=== PATIENT | male | born 1970 | race Caucasian/White ===

== ENCOUNTER 2024-02-16 16:22 | Outpatient (CLI) | payer BC | END 2024-02-16 23:59 | disposition critical access hospital (66) | LOC: EMS 16:22 | DX: M25.552 Pain in left hip (principal); R10.31 Right lower quadrant pain; S81.001A Unspecified open wound, right knee, initial encounter; S41.101A Unspecified open wound of right upper arm, initial encounter; V18.4XXA Pedal cycle driver injured in noncollision transport accident in traffic accident, initial encounter; Y93.55 Activity, bike riding; Y92.410 Unspecified street and highway as the place of occurrence of the external cause | CPT/HCPCS: A0425; A0427 ==

== ENCOUNTER 2024-02-16 16:57 | Emergency (ER) | payer BC ==
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
[2024-02-16] MEDS: ACETAMINOPHEN 500 MG TABLET PO STA (17:26)
[2024-02-16] MEDS: KETOROLAC 30 MG/ML VIAL IVP STA (17:27)
[2024-02-16] MEDS: HYDROmorphone 0.5 MG/0.5 ML SYRINGE IVP STA ×3 (17:29→22:11)
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
[2024-02-16] MEDS ORDERED: iohexoL-300 100 ML VIAL ONE (19:45)
[2024-02-16 19:55] LABS: BASOPHILS % (AUTO) 0.3 %; EOSINOPHILS % (AUTO) 0.1 %; HCT - HEMATOCRIT 43.2 % (42.0-52.0); HGB - HEMOGLOBIN 14.1 g/dL (14.0-18.0); LYMPHOCYTES # (AUTO) 0.8 10^3/uL (1.5-3.5); LYMPHOCYTES % (AUTO) 6.8 %; MEAN CORPUSCULAR HEMOGLOBIN 29.7 pg (27.0-31.0); MEAN CORPUSCULAR HGB CONC 32.6 g/dL (32.0-36.0); MEAN CORPUSCULAR VOLUME 91.1 fL (80.0-94.0); MONOCYTES # (AUTO) 0.6 10^3/uL (0.0-1.0); NEUTROPHILS # (AUTO) 9.8 10^3/uL (1.5-6.6); NEUTROPHILS % (AUTO) 87.4 %; PLT - PLATELET COUNT 228 10^3/uL (130-450); RED BLOOD COUNT 4.74 10^6/uL (4.70-6.10); RED CELL DISTRIBUTION WIDTH 12.5 % (12.0-15.0); WHITE BLOOD COUNT 11.2 x10^3/uL (4.8-10.8)
[2024-02-16 20:09] LABS: ALBUMIN 3.9 g/dL (3.2-5.5); ALBUMIN/GLOBULIN RATIO 1.6 (1.0-2.2); BILIRUBIN,TOTAL 0.4 mg/dL (0.2-1.0); CALCIUM 8.7 mg/dL (8.5-10.3); CREATININE 0.7 mg/dL (0.6-1.3); MAGNESIUM 1.7 mg/dL (1.7-2.3); POTASSIUM 3.6 mmol/L (3.5-4.5); TOTAL PROTEIN 6.4 g/dL (6.4-8.9)
[2024-02-16 20:49] LABS: BILIRUBIN,URINE NEGATIVE (NEGATIVE); GLUCOSE, URINE (UA) NEGATIVE (NEGATIVE); KETONES,URINE (UA) 15 mg/dL (NEGATIVE); LEUKOCYTE ESTERASE, URINE NEGATIVE (NEGATIVE); NITRITE,URINE NEGATIVE (NEGATIVE); OCCULT BLOOD,URINE NEGATIVE (NEGATIVE); PH,URINE 6.5 PH (5.0-7.5); PROTEIN,URINE TRACE mg/dL (NEGATIVE); UROBILINOGEN,URINE 1 (NORMAL) E.U./dL (NORMAL)
[2024-02-16 20:50] VITALS: O2SAT 100
[2024-02-16 20:51] LABS: CLARITY,URINE CLEAR (CLEAR)
[2024-02-16] MEDS: iohexoL-300 100 ML VIAL IVP ONE (21:06)
[2024-02-16] MEDS: LIDOCAINE 1% 2 ML VIAL SUBQ STA (21:15)
--- NOTE | 2024-02-16 21:21 | CT Report ---
PROCEDURE: Angio Abdomen/Pelvis INDICATIONS: possible hematoma CONTRAST: 100ml [id number] TECHNIQUE: After the administration of intravenous contrast, 2.5 mm thick sections acquired from the diaphragm t o the symphysis. 10 mm maximum-intensity projection (MIP) reformats were then acquired. For radiati on dose reduction, the following was used: automated exposure control, adjustment of mA and/or kV ac cording to patient size. COMPARISON: Same-day pelvic CT FINDINGS: Image quality: Diagnostic Lower chest: Basal suspected atelectasis Liver: No laceration or capsular hematoma. Gallbladder and biliary system: Unremarkable, nondilated Pancreas: No ductal dilation Spleen: Nonenlarged Adrenals: No discrete nodules Kidneys: No solid mass or hydronephrosis. Suspected tiny fat-containing AML at the left superior pole Vessels and lymph nodes: The main portal vein appears patent. No abdominal aortic aneurysm. No pathol ogic lymph nodes by size criteria. Bowel and peritoneum: No evidence of small bowel obstruction. No hemoperitoneum. Moderate fecal loadi ng. The appendix is nondilated. Body wall: Small fat-containing umbilical hernia. Pelvis: A moderate right subperitoneal hematoma is again seen, no significant interval change in the short interval. The bladder is displaced to the left. No active extravasation identified on multiphas e study. The hematoma involves the right obturator internus as before. There is mild bladder distenti on. Prostate is not well evaluated on this study. Bones: Right pubic and acetabular fracture is separately described on pelvic CT. Lumbar degenerative changes with L5 pars defects and anterolisthesis. No acute fracture/subluxation of the lumbar spine. IMPRESSION: Right pubic and acetabular fractures. No significant interval change in the subperitoneal hematoma. N o active extravasation on multiphasic study. Other findings as above. No traumatic abnormality identified in the abdomen. Reviewed by: Arturo Aguilar MD on 02/16/2024 9:19 PM PDT Approved by: Arturo Aguilar MD on 02/16/2024 9:19 PM PDT Station ID: [id number]
[2024-02-16] MEDS: LIDOCAINE 2% 10 ML MDV SUBQ ONE (21:40)
[2024-02-16] MEDS: BACITRACIN ZINC OINT 1 PACKET TOP STA (21:58)
[2024-02-16 22:05] VITALS: BP 147/89
== END 2024-02-16 22:21 | disposition short-term general hospital (02) ==
LOC: ED 16:57
DX: S32.591A Other specified fracture of right pubis, initial encounter for closed fracture (principal); S51.011A Laceration without foreign body of right elbow, initial encounter; X58.XXXA Exposure to other specified factors, initial encounter; Y93.55 Activity, bike riding; D72.829 Elevated white blood cell count, unspecified; I10 Essential (primary) hypertension
CPT/HCPCS: 12002; 36415; 72192; 73502; 73552; 74174; 80053; 81003; 83690; 83735; 85025; 96374; 96375; 96376; 99285; A9270; J1170; Q9967; 81001; 87086